=== PATIENT | male | born 1950 | race Caucasian/White ===

== ENCOUNTER 2018-04-14 18:51 | Emergency (ER) | payer OTHER ==
[2018-04-14] MEDS ORDERED: Lidocaine 1% 30 ML SDV INJECT ONE (19:09)
[2018-04-14] MEDS ORDERED: Bacitracin Oint 1 GM U/D Packet TOP ONE (19:23)
--- NOTE | 2018-04-14 19:30 | EDM.PDOC ---
ED HPI GENERAL MEDICAL PROBLEM - General Chief Complaint: Wound Recheck Stated Complaint: [id number] FISH HOOK STUCK IN FINGER Time Seen by Provider: 04/14/18 19:18 Source of Information: Reports: Patient, RN, RN Notes Reviewed History Limitations: Reports: No Limitations - History of Present Illness INITIAL COMMENTS - FREE TEXT/NARRATIVE: Patient presents to the ER with c/o fish hook in the left pointer finger. Patient states he got the fish hook caught in his shoe and was trying to remove the hook from the shoe when he got it stuck in his finger. Patient states he believes he is up to date on his Tetanus, as he has had previous fish hook removals and he doctors at the [facility]. He states he will call the [facility] tomorrow and make sure his Tetanus status is up to date. Onset: Today, Sudden Left 2-Index finger Pain Score (Numeric/FACES): 5 - Related Data Allergies Allergy/AdvReac Type Severity Reaction Status Date / Time No Known Allergies Allergy Verified 04/14/18 19:00 Past Medical History Cardiovascular History: Reports: High Cholesterol, Hypertension Genitourinary History: Reports: Chronic Renal Insuffiency Neurological History: Reports: CVA Oncologic (Cancer) History: Reports: Squamous Cell Carcinoma Social & Family History - Tobacco Use Smoking Status *Q: Never Smoker Second Hand Smoke Exposure: No - Recreational Drug Use Recreational Drug Use: No ED ROS GENERAL - Review of Systems Review Of Systems: ROS reveals no pertinent complaints other than HPI. ED EXAM, SKIN/RASH Exam: See Below Exam Limited By: No Limitations General Appearance: Alert, WD/WN, No Apparent Distress Eye Exam: Bilateral Eye: Normal Inspection Ears: Normal External Exam, Hearing Grossly Normal Nose: Normal Inspection Throat/Mouth: Normal Inspection, Normal Voice, No Airway Compromise Head: Atraumatic, Normocephalic Neck: Normal Inspection, Supple, Non-Tender, Full Range of Motion Respiratory/Chest: No Respiratory Distress, Lungs Clear, Normal Breath Sounds, No Accessory Muscle Use, Chest Non-Tender Cardiovascular: Normal Peripheral Pulses, Regular Rate, Rhythm, No Edema, No Gallop, No JVD, No Murmur, No Rub Peripheral Pulses: 2+: Radial (L), Radial (R) GI/Abdominal: Normal Bowel Sounds, Soft, Non-Tender, No Distention (Male) Exam: Deferred Rectal (Males) Exam: Deferred Back Exam: Normal Inspection, Full Range of Motion, NT Extremities: Normal Inspection, Normal Range of Motion, Non-Tender, No Pedal Edema, Normal Capillary Refill Neurological: Alert, Oriented, CN II-XII Intact, Normal Cognition, Normal Gait, Normal Reflexes, No Motor/Sensory Deficits Psychiatric: Normal Affect, Normal Mood Skin: Wound/Incision (puncture wound, fish hook stuck in left second finger) Location, Skin: Upper Extremity, Left Lymphatic: No Adenopathy ED SKIN PROCEDURES - Foreign Body Removal Indication:: Fish hook removal Consent Obtained:: Patient Performing Doctor:: Nayely Panchal Foreign Body Other Location Comment:: Left hand, dorsal aspect of pointer finger Anesthesia Type: Local Complications:: No Course - Vital Signs Last Recorded V/S: Last Vital Signs Temp 98.6 F 04/14/18 18:56 Pulse 74 04/14/18 18:56 Resp 18 04/14/18 18:56 BP 149/101 H 04/14/18 18:56 Pulse Ox 96 04/14/18 18:56 - Orders/Labs/Meds Meds: Medications Discontinued Medications Generic Name Dose Route Start Last Admin Trade Name Christianq PRN Reason Stop Dose Admin Bacitracin 1 dose 04/14/18 19:23 04/14/18 19:26 Bacitracin Oint 1 Gm TOP 04/14/18 19:24 1 dose ONETIME ONE Administration Lidocaine HCl 30 ml 04/14/18 19:09 04/14/18 19:14 Xylocaine-Mpf 1% INJECT 04/14/18 19:10 30 ml ONETIME ONE Administration Departure - Departure Time of Disposition: 19:28 Disposition: Home, Self-Care 01 Condition: Good Clinical Impression: [place] injury to finger Qualifiers: Encounter type: initial encounter Laterality: left Qualified Code(s): S69.92XA - Unspecified injury of left wrist, hand and finger(s), initial encounter - Discharge Information Instructions: Puncture Wound, Htth-[id number]-Onkg Referrals: PCP,Not In Area [Primary Care Provider] - Forms: ED Department Discharge Additional Instructions: Keep are clean and dry [facility]
== END 2018-04-14 19:33 | disposition home or self-care (01) ==
LOC: DL.ED 18:51
DX: S60.451A Superficial foreign body of left index finger, initial encounter (principal); E78.00 Pure hypercholesterolemia, unspecified; I12.9 Hypertensive chronic kidney disease with stage 1 through stage 4 chronic kidney disease, or unspecified chronic kidney disease; N18.9 Chronic kidney disease, unspecified; W45.8XXA Other foreign body or object entering through skin, initial encounter
CPT/HCPCS: 99282; 99283